=== PATIENT | male | born 1945 | race Caucasian/White ===

== ENCOUNTER → 2019-03-20 12:07 | Outpatient (CLI) | payer MEDICARE ==
[~2019-03-20 12:07] MED LIST: ASPIRIN81 MG PO; CENTRUM MEN'S1 EACH PO; DICLOFENAC SODI50 MG PO; FISH OIL 1,0001 CA1 PO; INSULIN LANTUS INJ; LIPITOR40 MG PO; LISINOPRIL5 MG PO; NEURONTIN600 MG PO; NOVOLOG100 UNIT/1 SC; VITAMIN D5000 UNIT PO
== END | disposition home or self-care (01) ==
LOC: D.RAD 12:07
PROVIDERS: ATTEND Surgery Vascular Surgery
DX: M25.552 Pain in left hip (principal); M25.551 Pain in right hip

== ENCOUNTER 2019-04-06 06:09 | Day surgery (SDC) | payer MEDICARE ==
[~2019-04-06] VITALS: Ht 177.8 cm; Wt 83.9 kg
[2019-04-06 06:41] LABS: HEMATOCRIT 47.4 % (42.0-54.0); HEMOGLOBIN 15.9 g/dL (13.5-17.5); MCH 32.1 pg (26.0-34.0); MCHC 33.5 g/dL (31.0-37.0); MCV 95.6 fL (80.0-100.0); MEAN PLATELET VOLUME 9.1 fL (7.4-10.4); RBC 4.96 10x6/uL (4.20-6.10); RDW 13.6 % (11.5-14.5); WBC 7.2 10x3/uL (4.8-10.8)
[2019-04-06 07:02] LABS: ANION GAP 11.7 mmol/L (8-16); CALCIUM 9.8 mg/dL (8.5-10.1); CARBON DIOXIDE 29.6 mmol/L (21.0-32.0); CREATININE - SERUM 1.2 mg/dL (0.6-1.3); POTASSIUM - SERUM 4.3 mmol/L (3.5-5.1)
[2019-04-06 08:07] VITALS: BP 137/72; Ht 177.8 cm; Wt 83.9 kg
--- NOTE | 2019-04-06 11:52 | OP ---
PATIENT NAME: SABIHA NOYOLA MEDICAL RECORD: [id number] :49 LOCATION:[facility] ADMISSION DATE: SURGEON: MONA REYNOSO MD DATE OF OPERATION: 04/06/2019 SURGEON: Mona Reynoso MD ANESTHESIA: TIVA by Karen Mathew CRNA. DIAGNOSIS: Bladder outlet obstruction, elevated PSA of 4.8 (02/27/2019). PROCEDURE: Cystoscopy, transrectal ultrasound, and prostate biopsy. FINDINGS: Obstructive bladder neck, single ureteral orifices bilaterally, trabeculated bladder with no bladder tumors. On transrectal ultrasound 30 gram prostate, which is broad and flat. SPECIMENS: Prostate biopsy cores. ESTIMATED BLOOD LOSS: Minimal. CLINICAL HISTORY: This is a 73-year-old male, who has an elevated PSA of 4.8. He is from [place], [place], and he had a PSA elevation 10 years ago. He had a biopsy at the [facility] and this was normal. He does have obstructive voiding symptoms. He comes today for a prostate biopsy. HE IS ALLERGIC TO CODEINE. He was given Ancef configuration engineer to the OR. DESCRIPTION OF PROCEDURE: The patient was given IV sedation. He was placed into the lithotomy position and prepped and draped. A 17-Maori cystoscope with 30-degree lens was used for visualization. Findings are as outlined above. The bladder was then emptied through the cystoscope sheath and the scope was removed. We then introduced the transrectal ultrasound probe and prostate size measurements were obtained. The prostate size is moderate at 30 grams in size. Sextant biopsies were obtained with at least 3 cores from each sextant. Once all the specimens were obtained, the procedure was terminated. No hypoechoic areas were seen in the prostate. I will see the patient in followup next week to review the pathology results with him. TRANSINT:[id number] Voice Confirmation ID: [id number] DOCUMENT ID: [id number] MONA REYNOSO MD at 1152 CC: [id number] DICTATION DATE: 04/06/19 0942 WOMEN NURSE: 04/06/19 1138 [facility] [address] [place] [address]
--- NOTE | 2019-04-06 12:27 | NUR ---
1012-REC'D FROM SURGERY. DROWSY,EASILY AROUSED WITH VERBAL STIMULI. VSS. DENIES PAIN.VSS.ABD SOFT NON DISTENDED. NO NAUSEA OR VOMITING.CL IN EASY REACH, SPOUSE AT BEDSIDE.
--- NOTE | 2019-04-06 12:29 | NUR ---
1030-FULL LIQUID TRAY TO ROOM. DENIES COMPLAINTS
--- NOTE | 2019-04-06 12:33 | NUR ---
0940-REC'D FROM SURGERY. DROWSY,EASILY AROUSED WITH VERBAL STIMULI. VSS.DENIES PAIN.ABD SOFT, NON DISTENDED. NO NAUSEA OR VOMITING. REVIEWED DISCHARGE CRITERIA. VERBALIZED UNDERSTANDING.
--- NOTE | 2019-04-06 12:34 | NUR ---
1012-TOLERATED TRAY. ABLE TO AMBULATE TO RESTROOM AND URINATE WITHOUT COMPLICATIONS. REMOVED IV WITH CATH INTACT,DIPOSED INTO SHARPS,COVERED SITE WITH GUAZE,SECURED WITH MEDIPORE TAPE.
--- NOTE | 2019-04-06 12:34 | NUR ---
0950-FULL LIQUID TRAY TO ROOM.DENIES COMPLAINTS.
--- NOTE | 2019-04-06 12:36 | NUR ---
1018-REVIEWED POST OPERATIVE INSTRUCTIONS AND FOLLOW UP APPOINTMENT.VERBALIZED UNDERSTANDING. ESCORTED OUT VIA W/C WITH SPOUSE AWAITING TO DRIVE HOME.
== END 2019-04-06 10:18 | disposition home or self-care (01) ==
LOC: D.PAN 06:09 → D.OPS 10:40
PROVIDERS: Anesthesiology; ATTEND Urology
DX: R97.20 Elevated prostate specific antigen [PSA] (principal); E78.2 Mixed hyperlipidemia; E10.42 Type 1 diabetes mellitus with diabetic polyneuropathy; N32.0 Bladder-neck obstruction

== ENCOUNTER → 2020-06-28 14:33 | Outpatient (CLI) | payer MEDICARE ==
[2019-04-06 08:07] VITALS: BMI 26.6
== END | disposition home or self-care (01) ==
LOC: D.US 14:33
PROVIDERS: ATTEND Family Medicine
DX: R94.5 Abnormal results of liver function studies (principal)